=== PATIENT | male | born 1985 | race African-American/Black ===

== ENCOUNTER 2022-01-07 16:50 | Emergency (ER) | payer MEDICAID ==
[~2022-01-07] VITALS: Ht 172.7 cm; Wt 68.0 kg
[2022-01-07 17:31] VITALS: BP 106/58
== END 2022-01-07 21:23 | disposition left against medical advice (07) ==
LOC: ER 16:50
DX: Z53.21 Procedure and treatment not carried out due to patient leaving prior to being seen by health care provider (principal)

== ENCOUNTER 2022-01-27 00:09 | Emergency (ER) | payer MEDICAID ==
[~2022-01-27] VITALS: Ht 177.8 cm; Wt 78.0 kg
[2022-01-27 00:14] VITALS: BP 160/76
== END 2022-01-27 00:56 ==
LOC: ER 00:18
DX: S00.83XA Contusion of other part of head, initial encounter (principal); X58.XXXA Exposure to other specified factors, initial encounter; Y93.89 Activity, other specified; Y92.89 Other specified places as the place of occurrence of the external cause; Y99.8 Other external cause status
CPT/HCPCS: 99283